=== PATIENT | male | born 1970 | race Caucasian/White ===

== ENCOUNTER 2016-10-02 13:32 | Emergency (ER) | payer OTHER ==
--- NOTE | 2016-10-02 13:53 | CPEKG ---
Heart Rate: 69 RR Interval: 870 P-R Interval: 172 QRSD Interval: 164 QT Interval: 448 QTC Interval: 480 P [place]: 13 QRS [place]: -64 T Wave [place]: -8 EKG Severity - ABNORMAL ECG - EKG Impression: SINUS RHYTHM EKG Impression: RIGHT BUNDLE BRANCH BLOCK Electronically Signed By: Nusrat Baker 02-Oct-2016 14:07:04
[2016-10-02] MEDS ORDERED: ASPIRIN 81 MG CHEWABLE TAB PO ONE (13:57)
--- NOTE | 2016-10-02 14:05 | EDPHY ---
H & P Stated Complaint: Increased anxiety, chest tightness, sleep disturbance x 3 days. Source: Patient - Personal History Current Tetanus Diphtheria and Acellular Pertussis (TDAP): Yes Tetanus Vaccine Date: within 10 years - Medical/Surgical History Hx Asthma: No Hx Chronic Respiratory Disease: No Hx Diabetes: No Hx Cardiac Disease: No Hx Renal Disease: No Hx Cirrhosis: No Hx Alcoholism: No Hx HIV/AIDS: No Hx Splenectomy or Spleen Trauma: No Other PMH: Anxiety, depression, HTN, appendectomy, hernia - Family History Significant Family History: No pertinent family hx - Social History Smoking Status: Never smoked <Nusrat Baker - Last Filed: 10/02/16 15:15> <John Mcdaniel - Last Filed: 10/02/16 16:31> Time Seen by Provider: 10/02/16 13:36 HPI/ROS: CHIEF COMPLAINT: Effexor withdrawal History by patient HISTORY OF PRESENT ILLNESS: 46-year-old man with a history of anxiety and depression he has been on Effexor for 5-10 years recently moved to [place] and ran out of his prescription. Due to some glitch with his new work insurance he was unable to get a refill when he ran out 3 days ago. He states he has an appointment pending at [facility] seen in 2 days however over the past 3 days he has been getting increasingly anxious and having all kinds of unusual symptoms that he thinks are related to the effects or withdrawal. He does state that the began shortly after he read about the stopping Effexor on the Internet. He complains of brain jolt, tingly feeling all over his body, anxiousness, insomnia, episodes of diaphoresis. 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 This occurred while he was running up and down the elevator moving bottles of alcohol. He denies any difficulty breathing. He has had no vomiting. He also states he has had some episodes of uncontrolled crying over the past few days which he has never had before. He denies any suicidal ideation. Patient's cardiac risk factors notable for his history of hypertension. He does not have diabetes, he is not smoke, he does not have high cholesterol. His family history is unknown as he is adopted. Patient does state he had a stress test 10 years ago or so in [place], where he used to live, which was within normal limits. REVIEW OF SYSTEMS: As in HPI, and all other systems reviewed and are negative (Nusrat Baker) - Physical Exam Exam: General Appearance: Alert, anxious appearing. Eyes: Pupils equal and round no pallor or injection. ENT, Mouth: Mucous membranes moist. Respiratory: Normal, effort, There are no retractions, lungs are clear to auscultation. Cardiovascular: Regular rate and rhythm. Gastrointestinal: Abdomen is soft and nontender, no masses, bowel sounds normal. Neurological: Awake, alert and oriented x 3, no pronator drift, normal gait, no pronator drift Skin: Warm and dry, no rashes. Musculoskeletal: Neck is supple nontender. Extremities are symmetrical, full range of motion. Psychiatric: Patient has normal affect, he denies suicidal ideation (Nusrat Baker) Constitutional: Initial Vital Signs Temperature (C) 36.9 C 10/02/16 13:43 Heart Rate 75 10/02/16 13:43 Respiratory Rate 18 10/02/16 13:43 Blood Pressure 176/98 H 10/02/16 13:43 O2 Sat (%) 99 10/02/16 13:43 O2 Delivery Mode Room Air Allergies/Adverse Reactions: amoxicillin Allergy (Unknown, Verified 10/02/16 13:45) Unknown ampicillin Allergy (Unknown, Verified 10/02/16 13:45) Unknown Home Medications: Medication Instructions Recorded Bupropion HCl 10/02/16 Effexor 10/02/16 Metoprolol Tartrate 10/02/16 Venlafaxine Xr [Effexor Xr] 2 cap PO DAILY #30 cap 10/02/16 Medical Decision Making - Diagnostics Imaging: Discussed imaging studies w/ machine scallop cutter Radiologist <Nusrat Baker - Last Filed: 10/02/16 15:15> - Diagnostics Imaging: Discussed imaging studies w/ machine scallop cutter Radiologist <John Mcdaniel - Last Filed: 10/02/16 16:31> - Diagnostics EKG Interpretation: Normal sinus rhythm at a rate of 69 with right bundle branch block and no evidence of acute ischemia. No old EKG available for comparison. (Nusrat Baker) Imaging Results: Imaging Impressions Chest X-Ray 10/02/16 13:57 Impression: Mild prominence of the ascending thoracic aortic contour. Given the patient's history of chest pain, CT imaging may be of benefit in further evaluation. Results were discussed with Nusrat Baker MD at 2:28 PM on 10/02/2016. Chest/Thorax CTA 10/02/16 14:33 Impression: Very mild dilatation of the ascending aorta. Recommend echocardiography to exclude aortic valve disease. Is this patient marfanoid or have a connective tissue disorder? No dissection. Results discussed with Dr. Mcdaniel at 3:45 PM General information for patients regarding this examination can be found at [email or web address]. If you have questions or comments about this report, please contact me at (hospital) or [phone] (cell). ED Course/Re-evaluation: 46-year-old man presents with anxiety, multiple symptoms including an episode of chest pain and diaphoresis along with hypertension and a right bundle-branch block on his EKG without EKG for comparison. Patient was given an aspirin and labs were ordered. On re-evaluation patient was feeling more calm and much better however his blood pressure remained slightly elevated. Chest x-ray showed prominence of his ascending thoracic aorta per the radiologist was concerning for aneurysm or dissection and he recommended follow-up CT angiogram of the chest.. Patient was denying any back pain but given the constellation of symptoms and his poorly controlled hypertension, although this is most likely effects or withdrawal, I did not want to miss a series diagnosis such as aortic dissection, therefore CT angiogram of the chest was obtained.. (Nusrat Baker) Other Provider: We discussed the patient's CT results. I will refer him to Cardiology for echocardiogram. He is happy with this. He is calm and vital signs are currently stable. He declines further workup or testing (John Mcdaniel) - Data Points Laboratory Results: Laboratory Results 10/02/16 14:04 10/02/16 14:04 10/02/16 10/02/16 14:04 14:04 WBC 4.26 10^3/uL 10^3/uL (3.80-9.50) RBC 5.42 10^6/uL 10^6/uL (4.40-6.38) Hgb 16.7 g/dL g/dL (13.7-17.5) Hct 47.4 % % (40.0-51.0) MCV 87.5 fL fL (81.5-99.8) MCH 30.8 pg pg (27.9-34.1) MCHC 35.2 g/dL g/dL (32.4-36.7) RDW 12.4 % % (11.5-15.2) Plt Count 182 10^3/uL 10^3/uL (150-400) MPV 10.6 fL fL (8.7-11.7) Neut % (Auto) 53.3 % % (39.3-74.2) Lymph % (Auto) 31.0 % % (15.0-45.0) [place] % (Auto) 11.0 % % (4.5-13.0) Eos % (Auto) 3.3 % % (0.6-7.6) Baso % (Auto) 1.2 % % (0.3-1.7) Nucleat RBC Rel Count 0.0 % % (0.0-0.2) Absolute Neuts (auto) 2.27 10^3/uL 10^3/uL (1.70-6.50) Absolute Lymphs (auto) 1.32 10^3/uL 10^3/uL (1.00-3.00) Absolute Monos (auto) 0.47 10^3/uL 10^3/uL (0.30-0.80) Absolute Eos (auto) 0.14 10^3/uL 10^3/uL (0.03-0.40) Absolute Basos (auto) 0.05 10^3/uL 10^3/uL (0.02-0.10) Absolute Nucleated RBC 0.00 10^3/uL 10^3/uL (0-0.01) Immature Gran % 0.2 % % (0.0-1.1) Immature Gran # 0.01 10^3/uL 10^3/uL (0.00-0.10) Sodium 143 mEq/L mEq/L (134-144) Potassium 4.0 mEq/L mEq/L (3.5-5.2) Chloride 101 mEq/L mEq/L (97-110) Carbon Dioxide 25 mEq/l mEq/l (22-31) Anion Gap 17 mEq/L H mEq/L (8-16) BUN 14 mg/dL mg/dL (7-23) Creatinine 0.9 mg/dL mg/dL (0.7-1.3) Estimated GFR > 60 Glucose 109 mg/dL H mg/dL (70-100) Calcium 9.4 mg/dL mg/dL (8.5-10.4) Troponin I < 0.012 ng/mL ng/mL (0-0.034) Medications Given: Discontinued Medications Aspirin (Aspirin) 324 mg PO EDNOW ONE Stop: 10/02/16 13:58 Last Admin: 10/02/16 13:57 Dose: 324 mg Departure <Nusrat Baker - Last Filed: 10/02/16 15:15> <John Mcdaniel - Last Filed: 10/02/16 16:31> - Departure Disposition: Home, Routine, Self-Care Clinical Impression: Serotonin withdrawal syndrome Qualifiers: Encounter type: initial encounter Qualified Code(s): T50.995A - Adverse effect of other drugs, medicaments and biological substances, initial encounter Clinical Impression: (Ruled Out): SSRI (selective serotonin reuptake inhibitor) causing adverse effect in therapeutic use Condition: Fair Additional Instructions: You were seen by Dr. Nusrat Baker today. Return for any worsening or new concerns. Take your Effexor as prescribed. Follow up at [facility] as scheduled on Friday. Referrals: NONE *PRIMARY CARE P,. [Primary Care Provider] - As per Instructions Werner Carrasco DO [Medical Doctor] - As per Instructions Jose Vivar MD [Medical Doctor] - As per Instructions Prescriptions: Venlafaxine Xr [Effexor Xr] 2 cap PO DAILY #30 cap
[2016-10-02 14:13] LABS: % IMMATURE GRANULYOCYTES 0.2 % (0.0-1.1); ABSOLUTE IMMATURE GRANULOCYTES 0.01 10^3/uL (0.00-0.10); ADD DIFF? NO; ADD MORPH? NO; ADD SCAN? NO; ATYPICAL LYMPHOCYTE FLAG 10 (0-99); FRAGMENT RBC FLAG 0 (0-99); HEMATOCRIT 47.4 % (40.0-51.0); HEMOGLOBIN 16.7 g/dL (13.7-17.5); LEFT SHIFT FLG 0 (0-99); LIPEMIA HEMOLYSIS FLAG 90 (0-99); MEAN CELL HEMOGLOBIN 30.8 pg (27.9-34.1); MEAN CELL HEMOGLOBIN CONCENTR. 35.2 g/dL (32.4-36.7); MEAN CELL VOLUME 87.5 fL (81.5-99.8); MEAN PLATELET VOLUME 10.6 fL (8.7-11.7); PLATELET CLUMPS FLAG 0 (0-99); PLATELET COUNT 182 10^3/uL (150-400); RED BLOOD CELL COUNT 5.42 10^6/uL (4.40-6.38); RED CELL DISTRIBUTION WIDTH 12.4 % (11.5-15.2)
[2016-10-02 14:26] LABS: ANION GAP 17 mEq/L (8-16); CALCIUM 9.4 mg/dL (8.5-10.4); CARBON DIOXIDE 25 mEq/l (22-31); CHLORIDE 101 mEq/L (97-110); CREATININE 0.9 mg/dL (0.7-1.3); GLOMERULAR FILTRATION RATE > 60; GLUCOSE 109 mg/dL (70-100); SODIUM 143 mEq/L (134-144)
[2016-10-02 14:39] LABS: TROPONIN I < 0.012 ng/mL (0-0.034)
[2016-10-02] MEDS ORDERED: IOPAMIDOL (ISOVUE 370) 100 ML BTL IV ONE (14:43)
[2016-10-02 15:55] VITALS: PULSE 78
[2016-10-02 16:02] VITALS: BP 148/103; RESP 18; TEMP 98.4; O2SAT 100
== END 2016-10-02 16:03 | disposition home or self-care (01) ==
LOC: CED 13:32
DX: F41.9 Anxiety disorder, unspecified (principal); T50.995A Adverse effect of other drugs, medicaments and biological substances, initial encounter; I10 Essential (primary) hypertension
CPT/HCPCS: 71020-PO; 71275-PO; 80048-PO; 84484-PO; 85025-PO; Q9967

== ENCOUNTER 2017-07-02 14:57 | Emergency (ER) | payer MEDICAID, OTHER ==
[2017-07-02 15:10] VITALS: RESP 16; TEMP 98.4; O2SAT 99
--- NOTE | 2017-07-02 15:34 | EDPHY ---
H & P Stated Complaint: last fell going up stairs and has tingling in both hands Time Seen by Provider: 07/02/17 15:07 HPI/ROS: Chief Complaint: Bilateral hand numbness status post fall HPI: 46-year-old male fell while walking up the stairs yesterday chasing after his dogs. He fell forward onto his flexed forearms, striking his elbows and also striking his head. He did not have a loss of consciousness. Since that time he has noticed some numbness and tingling in both of his hands. Primarily there in his ring and small finger. He has not been dropping any objects. No prior history of numbness in the past. He has no headache. No neck pain. No other numbness or weakness. No nausea or vomiting. ROS: 10 point Review of Systems is negative except as noted in the HPI. PMH: Hypertension Social History: No smoking, no alcohol, no recreational drug use Family History: non-contributory Physical Exam: Gen: Awake, Alert, No Distress HEENT: There is a right frontal forehead contusion Nose: no rhinorrhea Eyes: PERRLA, EOMI Mouth: Moist mucosa Neck: Supple, no JVD, nontender Chest: nontender, lungs clear to auscultation Heart: S1, S2 normal, no murmur Abd: Soft, non-tender, no guarding Back: no CVA tenderness, no midline tenderness Ext: Patient has sensation to light touch in the radial median and ulnar nerve distribution. He does have some paresthesias in the ulnar nerve distribution of his hand bilaterally. He has normal flexion and extension strength of all digits. He has normal wrist flexion and extension. There is minimal tenderness over the ulnar nerve adjacent to the olecranon reproducing the pins and needle sensation. Skin: no rash Neuro: CN II-XII intact, Sensation grossly intact, Strength 5/5 in bilateral upper and lower extremities - Personal History Current Tetanus Diphtheria and Acellular Pertussis (TDAP): Yes Tetanus Vaccine Date: within 10 years - Medical/Surgical History Hx Asthma: No Hx Chronic Respiratory Disease: No Hx Diabetes: No Hx Cardiac Disease: No Hx Renal Disease: No Hx Cirrhosis: No Hx Alcoholism: No Hx HIV/AIDS: No Hx Splenectomy or Spleen Trauma: No Other PMH: Anxiety, depression, HTN, appendectomy, hernia - Social History Smoking Status: Never smoked Constitutional: Initial Vital Signs Temperature (C) 36.9 C 07/02/17 15:05 Heart Rate 85 07/02/17 15:05 Respiratory Rate 16 07/02/17 15:05 Blood Pressure 180/115 H 07/02/17 15:05 O2 Sat (%) 99 07/02/17 15:05 O2 Delivery Mode Room Air Allergies/Adverse Reactions: amoxicillin Allergy (Unknown, Verified 07/02/17 15:11) Unknown ampicillin Allergy (Unknown, Verified 07/02/17 15:11) Unknown Home Medications: Medication Instructions Recorded Metoprolol Tartrate 10/02/16 Venlafaxine Xr [Effexor Xr] 2 cap PO DAILY #30 cap 10/02/16 Lisinopril 07/02/17 Metoprolol Succinate Xr [Toprol Xl 100 mg PO DAILY #30 tab.sr 07/02/17 100 mg (*)] Medical Decision Making - Diagnostics Imaging Results: Imaging Impressions Cervical Spine X-Ray 07/02/17 15:25 Impression: 1. Degenerative disk disease lower cervical spine most prominent at C5-C6. 2. Moderate facet hypertrophy at C7-T1. 3. Reversal the normal lordosis of the mid to upper cervical spine. This is nonspecific but can be seen with muscle spasm. Imaging: I viewed and interpreted images myself ED Course/Re-evaluation: 46-year-old male presenting with symptoms consistent with a bilateral ulnar neuropathy after falling and hitting his eye was yesterday. His neurologic week complaints are isolated to the ulnar nerve distribution of bilateral hands. Is reproducible by palpation over the ulnar nerve adjacent to the olecranon. He has no weakness. Given his head trauma I did a I did obtain a x- ray of his cervical spine which is normal. It is noted he was hypertension is visit. He has not been taking his metoprolol. Will discharge with follow-up with primary care next week. I have referred him both to Clinicaand to Dr. Hendrickson. He will return for any concerns. Departure - Departure Disposition: Home, Routine, Self-Care Clinical Impression: Ulnar neuropathy, Hypertension Condition: Good Instructions: Paresthesia (ED) Additional Instructions: Alternate acetaminophen (1000 mg) with ibuprofen (400 mg) every 4 hours as needed for pain. Follow up with primary care in 3-4 days for further evaluation. Return emergency department for increasing numbness, weakness, worsening headache, or any other concerns. Referrals: [facility] AGUILERA,. [Clinic] - As per Instructions Lauren Hendrickson MD [[facility] Primary Care Provider] - As per Instructions Prescriptions: Metoprolol Succinate Xr [Toprol Xl 100 mg (*)] 100 mg PO DAILY #30 tab.sr
[2017-07-02 16:31] VITALS: BP 185/121; PULSE 90
== END 2017-07-02 16:34 | disposition home or self-care (01) ==
LOC: CED 14:57
DX: G56.23 Lesion of ulnar nerve, bilateral upper limbs (principal); I10 Essential (primary) hypertension; W10.8XXA Fall (on) (from) other stairs and steps, initial encounter; Y99.8 Other external cause status; Y93.01 Activity, walking, marching and hiking
CPT/HCPCS: 72040-PO